=== PATIENT | male | born 1970 | race Caucasian/White ===

== ENCOUNTER → 2019-10-13 | Outpatient (CLI) | payer OTHER ==
[~2019-10-13] MED LIST: HYDR-3653 PO; NONE at this time; OMNIPAQUE 350 MG/ML, 100ML BOTTLE ONE; ONDA4TAB10 PO
== END | disposition home or self-care (01) ==
LOC: RAD 08:24
PROVIDERS: ATTEND Nurse Practitioner
DX: C61 Malignant neoplasm of prostate (principal); K76.89 Other specified diseases of liver
CPT/HCPCS: 74177; 78306; A9503; Q9967